=== PATIENT | male | born 1985 | race Two or more races ===

== ENCOUNTER 2017-05-09 04:07 | Emergency (ER) | payer MEDICAID ==
[2017-05-09] MEDS ORDERED: NS 1,000 ML IV ONE (04:24)
[2017-05-09] MEDS ORDERED: LORazepam 2 MG/ML INJ IVP ONE (04:24)
[2017-05-09] MEDS ORDERED: ONDANSETRON 4 MG/2 ML VIAL IVP ONE (04:25)
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
[2017-05-09 05:10] VITALS: BP 115/81; PULSE 74; RESP 12; O2SAT 97
[2017-05-09 05:38] VITALS: TEMP 98.4
== END 2017-05-09 05:37 | disposition home or self-care (01) ==
DX: F11.23 Opioid dependence with withdrawal (principal); I10 Essential (primary) hypertension
CPT/HCPCS: 96374; J2060; J2405

== ENCOUNTER 2017-05-12 01:28 | Emergency (ER) | payer MEDICAID ==
[2017-05-12] MEDS ORDERED: LORazepam 1 MG TAB ONE (01:57)
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
[2017-05-12] MEDS ORDERED: LORazepam 1 MG TAB PO ONE (02:09)
[2017-05-12] MEDS ORDERED: LORAZEPAM 1 MG PREPACK#4 BTL TAKEHOME ONE ×2 (02:19→05:09)
[2017-05-12 05:14] VITALS: BP 131/74; PULSE 70; RESP 16; TEMP 98.1; O2SAT 96
== END 2017-05-12 05:14 | disposition home or self-care (01) ==
LOC: EDUNIT#
DX: G47.00 Insomnia, unspecified (principal)

== ENCOUNTER 2017-07-17 10:04 | Inpatient (IN) | payer MEDICAID ==
[2017-07-17] MEDS ORDERED: fentaNYL 100 MCG/2 ML INJ IVP ONE ×2 (10:16→13:39)
[2017-07-17] MEDS ORDERED: NS 1,000 ML IV ONE ×2 (10:16→10:44)
[2017-07-17] MEDS ORDERED: ONDANSETRON 4 MG/2 ML VIAL IVP ONE (10:16)
[2017-07-17 10:48] LABS: % IMMATURE GRANULYOCYTES 0.5 % (0.0-1.1); ABSOLUTE IMMATURE GRANULOCYTES 0.12 10^3/uL (0.00-0.10); ADD DIFF? NO; ADD MORPH? NO; ADD SCAN? NO; ATYPICAL LYMPHOCYTE FLAG 0 (0-99); FRAGMENT RBC FLAG 0 (0-99); HEMATOCRIT 46.7 % (40.0-51.0); HEMOGLOBIN 16.2 g/dL (13.7-17.5); LEFT SHIFT FLG 10 (0-99); LIPEMIA HEMOLYSIS FLAG 90 (0-99); MEAN CELL HEMOGLOBIN CONCENTR. 34.7 g/dL (32.4-36.7); MEAN CELL VOLUME 89.5 fL (81.5-99.8); MEAN PLATELET VOLUME 9.1 fL (8.7-11.7); PLATELET CLUMPS FLAG 0 (0-99); PLATELET COUNT 369 10^3/uL (150-400); RED BLOOD CELL COUNT 5.22 10^6/uL (4.40-6.38); RED CELL DISTRIBUTION WIDTH 14.3 % (11.5-15.2)
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
[2017-07-17 10:54] LABS: ANION GAP 14 mEq/L (8-16); CALCIUM 10.1 mg/dL (8.5-10.4); CARBON DIOXIDE 19 mEq/l (22-31); CHLORIDE 105 mEq/L (97-110); CREATININE 0.9 mg/dL (0.7-1.3); GLOMERULAR FILTRATION RATE > 60; GLUCOSE 88 mg/dL (70-100); POTASSIUM 3.9 mEq/L (3.5-5.2); SODIUM 138 mEq/L (134-144)
[2017-07-17] MEDS ORDERED: IOPAMIDOL (ISOVUE-300) 100 ML BTL ONE (11:01)
[2017-07-17 12:22] LABS: COLOR YELLOW; LEUKOCYTE ESTERASE,URINE NEGATIVE (NEGATIVE); NITRITE,URINE NEGATIVE (NEGATIVE)
[2017-07-17 14:49] LABS: HEMATOCRIT 47.9 % (40.0-51.0)
[2017-07-17] MEDS ORDERED: ONDANSETRON 4 MG/2 ML VIAL IVP PRN (15:01)
[2017-07-17] MEDS ORDERED: ONDANSETRON DISINTEGRATING 4 MG TAB PO PRN (15:01)
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
[2017-07-17] MEDS: VANCOMYCIN 1.5 GM in D5W 250 ML IV SCH (18:23)
[2017-07-17] MEDS: ACETAMINOPHEN 500 MG TAB PO SCH (20:26)
[2017-07-17] MEDS ORDERED: KETOROLAC 30 MG/1 ML SDV IVP ONE (20:43)
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
[2017-07-17] MEDS ORDERED: ACETAMINOPHEN 325 MG TAB PO SCH (22:00)
[2017-07-18 04:52] LABS: % IMMATURE GRANULYOCYTES 0.5 % (0.0-1.1); ABSOLUTE IMMATURE GRANULOCYTES 0.07 10^3/uL (0.00-0.10); ADD DIFF? NO; ADD MORPH? NO; ADD SCAN? NO; ATYPICAL LYMPHOCYTE FLAG 10 (0-99); FRAGMENT RBC FLAG 0 (0-99); HEMATOCRIT 44.3 % (40.0-51.0); LEFT SHIFT FLG 0 (0-99); LIPEMIA HEMOLYSIS FLAG 90 (0-99); MEAN CELL HEMOGLOBIN 31.1 pg (27.9-34.1); MEAN CELL HEMOGLOBIN CONCENTR. 33.9 g/dL (32.4-36.7); MEAN CELL VOLUME 91.7 fL (81.5-99.8); MEAN PLATELET VOLUME 9.3 fL (8.7-11.7); PLATELET CLUMPS FLAG 0 (0-99); PLATELET COUNT 303 10^3/uL (150-400); RED BLOOD CELL COUNT 4.83 10^6/uL (4.40-6.38); RED CELL DISTRIBUTION WIDTH 14.2 % (11.5-15.2)
[2017-07-18] MEDS: VANCOMYCIN 1.5 GM in D5W 250 ML IV SCH ×2 (05:02→17:22)
[2017-07-18] MEDS: ACETAMINOPHEN 500 MG TAB PO SCH ×3 (05:06→21:14)
[2017-07-18] MEDS: HYDROCODONE/APAP 5/325 TAB PO PRN ×4 (05:06→23:54)
[2017-07-18 05:34] LABS: ALANINE AMINOTRANSFERASE 24 IU/L (21-72); ALBUMIN 3.4 g/dL (3.5-5.0); ALKALINE PHOSPHATASE 71 IU/L (38-126); ANION GAP 11 mEq/L (8-16); ASPARTATE AMINOTRANSFERASE 18 IU/L (17-59); BILIRUBIN,TOTAL 0.8 mg/dL (0.1-1.4); BILIRUBIN-CONJUGATED 0.2 mg/dL (0.0-0.5); BILIRUBIN-UNCONJUGATED 0.6 mg/dL (0.0-1.1); C-REACTIVE PROTEIN 64.9 mg/L (<10.0); CALCIUM 9.2 mg/dL (8.5-10.4); CARBON DIOXIDE 21 mEq/l (22-31); CHLORIDE 106 mEq/L (97-110); CREATININE 0.9 mg/dL (0.7-1.3); GLOMERULAR FILTRATION RATE > 60; GLUCOSE 85 mg/dL (70-100); SODIUM 138 mEq/L (134-144); TOTAL PROTEIN 6.4 g/dL (6.3-8.2)
[2017-07-18] MEDS: KETOROLAC 15 MG/1 ML SDV IVP SCH ×4 (05:48→23:55)
[2017-07-18 05:56] LABS: CORTISOL-AM 12.5 ug/dL (4.5-22.7)
[2017-07-18] MEDS: ENOXAPARIN 40 MG/0.4 ML SYR SC SCH (09:15)
--- NOTE | 2017-07-18 10:33 | PCMIDPN ---
Assessment/Plan: Assessment/Plan: 1. Right buttock cellulitis with inguinal lymphadenopathy: - clinically improved since starting VAncomycin - wbc markedly improved. - blood cx pending -skin care and strategies to reduce skin infections discussed at length with patient - updated patient on available lab results so far. -continue with IV antbx at least 1-2 days more, and then plan to change to oral antibiotics thereafter. -check trough in AM Meds vanco 1.5gm q12- 07/17/17 Subjective: afebrile. feeling much better today. much less pain involving buttock. denies sob, abd pain, diarrhea. Stated he had sweats last night and this AM. Objective: Vital Signs Temp Pulse Resp BP Pulse Ox 36.5 C 56 L 16 95/46 L 94 07/18/17 07:43 07/18/17 07:43 07/18/17 07:43 07/18/17 07:43 07/18/17 07:43 Laboratory Results 07/18/17 04:37 07/18/17 04:37 07/17/17 07/18/17 07/19/17 05:59 05:59 05:59 Intake Total 1850 Output Total 2600 Balance -750 ESR 5 MM/HR (0-15) 07/17/17 Unknown C-Reactive Protein 64.9 mg/L (<10.0) H 07/18/17 04:37 - Physical Exam General Appearance: alert, no apparent distress Respiratory: lungs clear Cardiac/Chest: regular rate, rhythm Extremities: No swelling Abdomen: normal bowel sounds, non-tender, soft, No distended Pelvic Exam: other (lymphadenopathy inguinal) Skin: erythema (right buttock erythema with induraiton. no maxime abscess noted at this time. tender. no vesicles.) - Time Spent With Patient Time Spent with Patient: greater than 35 minutes Time Spent with Patient: Greater than 35 minutes spent on this patients care, greater than 50% of time spent counseling, educating, and coordinating care regarding the above mentioned plan. ICD10 Worksheet Patient Problems: Problems Problem Status Onset Right groin pain Acute
--- NOTE | 2017-07-18 11:24 | HOSPPROG ---
Hospitalist Progress Note Assessment/Plan: * Right buttock cellulitis with inguinal LAD * on IV vanco * improving *Erectile dysfunction * thyroid and cortisol nl * testosterone pending Subjective: right buttock and groin feel better Objective: Vital Signs Temp Pulse Resp BP Pulse Ox 36.5 C 56 L 16 95/46 L 94 07/18/17 07:43 07/18/17 07:43 07/18/17 07:43 07/18/17 07:43 07/18/17 07:43 Laboratory Results 07/18/17 04:37 07/18/17 04:37 07/17/17 07/18/17 07/19/17 05:59 05:59 05:59 Intake Total 1850 Output Total 2600 Balance -750 - Physical Exam Constitutional: no apparent distress, appears nourished, not in pain Eyes: anicteric sclera, EOMI Ears, Nose, Mouth, Throat: moist mucous membranes, hearing normal Genitourinary: other (tender right inguinal lad) Skin: other (mild erythema right buttock) Neurologic: AAOx3 Psychiatric: interacting appropriately, not anxious, not encephalopathic, thought process linear ICD10 Worksheet Patient Problems: Problems Problem Status Onset Right groin pain Acute
[2017-07-19 05:03] LABS: % IMMATURE GRANULYOCYTES 0.3 % (0.0-1.1); ABSOLUTE IMMATURE GRANULOCYTES 0.03 10^3/uL (0.00-0.10); ADD DIFF? NO; ADD MORPH? NO; ADD SCAN? NO; ATYPICAL LYMPHOCYTE FLAG 20 (0-99); FRAGMENT RBC FLAG 0 (0-99); HEMATOCRIT 44.9 % (40.0-51.0); LEFT SHIFT FLG 0 (0-99); LIPEMIA HEMOLYSIS FLAG 80 (0-99); MEAN CELL HEMOGLOBIN 30.5 pg (27.9-34.1); MEAN CELL HEMOGLOBIN CONCENTR. 33.4 g/dL (32.4-36.7); MEAN CELL VOLUME 91.4 fL (81.5-99.8); MEAN PLATELET VOLUME 9.4 fL (8.7-11.7); PLATELET CLUMPS FLAG 10 (0-99); PLATELET COUNT 337 10^3/uL (150-400); RED BLOOD CELL COUNT 4.91 10^6/uL (4.40-6.38); RED CELL DISTRIBUTION WIDTH 14.1 % (11.5-15.2)
[2017-07-19 05:15] LABS: ANION GAP 12 mEq/L (8-16); CALCIUM 9.4 mg/dL (8.5-10.4); CARBON DIOXIDE 22 mEq/l (22-31); CHLORIDE 107 mEq/L (97-110); CREATININE 0.9 mg/dL (0.7-1.3); GLOMERULAR FILTRATION RATE > 60; GLUCOSE 87 mg/dL (70-100); POTASSIUM 4.2 mEq/L (3.5-5.2); SODIUM 141 mEq/L (134-144)
[2017-07-19] MEDS: HYDROCODONE/APAP 5/325 TAB PO PRN ×3 (05:41→17:34)
[2017-07-19] MEDS: VANCOMYCIN 1.5 GM in D5W 250 ML IV SCH ×2 (05:41→17:35)
[2017-07-19] MEDS: KETOROLAC 15 MG/1 ML SDV IVP SCH ×4 (05:42→23:34)
[2017-07-19] MEDS: ACETAMINOPHEN 500 MG TAB PO SCH ×3 (05:44→22:10)
[2017-07-19] MEDS: ENOXAPARIN 40 MG/0.4 ML SYR SC SCH (08:51)
[2017-07-19] MEDS ORDERED: BISACODYL 10 MG SUPP PR PRN (14:49)
[2017-07-19] MEDS ORDERED: POLYETHYLENE GLYCOL 3350 17 GM PKT PO PRN (14:49)
[2017-07-19] MEDS ORDERED: LACTULOSE 20 GM/30 ML UDCUP PO PRN (14:49)
[2017-07-19] MEDS ORDERED: MAGNESIUM HYDROXIDE 30 ML UDCUP PO PRN (14:49)
--- NOTE | 2017-07-19 16:25 | HOSPPROG ---
Hospitalist Progress Note Assessment/Plan: * Right buttock cellulitis with inguinal LAD * on IV vanco * improving * hopefully dc home tomorrow *Erectile dysfunction * thyroid and cortisol nl * testosterone pending Subjective: feeling better Objective: Vital Signs Temp Pulse Resp BP Pulse Ox 36.9 C 67 14 122/93 H 96 07/19/17 15:12 07/19/17 15:12 07/19/17 15:12 07/19/17 15:12 07/19/17 15:12 Laboratory Results 07/19/17 04:30 07/19/17 04:30 07/18/17 07/19/17 07/20/17 05:59 05:59 05:59 Intake Total 1850 2450 Output Total 2600 2 Balance -750 2448 - Physical Exam Constitutional: no apparent distress, appears nourished, not in pain Ears, Nose, Mouth, Throat: moist mucous membranes, hearing normal Cardiovascular: regular rate and rhythym Musculoskeletal: other (improving erythema right buttock, improving LAD) Neurologic: AAOx3 Psychiatric: interacting appropriately, not anxious, not encephalopathic, thought process linear ICD10 Worksheet Patient Problems: Problems Problem Status Onset Right groin pain Acute
--- NOTE | 2017-07-19 17:45 | PCMIDPN ---
Assessment/Plan: # R buttock cellulitis/early small abscesses/associated inguinal LAD - clinically improved; WBC normalized. Blood cx negative, AF --if stable tomorrow, okay to DC tomorrow, do not need to wait for ID to round: doxycycline 100mg PO BID x 10 days --called counseling case managerXiomara at [phone] and left VM that patient is hospitalized Medications Generic Name Dose Route Start Last Admin Trade Name Freq PRN Reason Stop Dose Admin Vancomycin HCl 1.5 gm/ 250 mls @ 166.67 mls/hr 07/17/17 17:30 07/19/17 17:35 Dextrose IV 08/16/17 17:29 250 mls Q12H BLANCHE Protocol micro 07/17 blood cx (2) NGTD 07/19/17 18:07 Subjective: feeling well upset about counseling case manager not believing he is in hospital Objective: Vital Signs Temp Pulse Resp BP Pulse Ox 36.9 C 67 14 122/93 H 96 07/19/17 15:12 07/19/17 15:12 07/19/17 15:12 07/19/17 15:12 07/19/17 15:12 Laboratory Results 07/19/17 04:30 07/19/17 04:30 07/18/17 07/19/17 07/20/17 05:59 05:59 05:59 Intake Total 1850 2450 Output Total 2600 2 Balance -750 2448 ESR 5 MM/HR (0-15) 07/17/17 Unknown C-Reactive Protein 64.9 mg/L (<10.0) H 07/18/17 04:37 - Physical Exam General Appearance: alert Respiratory: lungs clear Neck: supple Cardiac/Chest: regular rate, rhythm, No systolic murmur Extremities: other (R buttock with multiple endurated areas that patient reports less tender) Male Genitalia: inguinal tenderness (right, but improved) Skin: other (extensive tatoos), No rash Neuro/Psych: alert, normal mood/affect, oriented x 3 ICD10 Worksheet Patient Problems: Problems Problem Status Onset Right groin pain Acute
[2017-07-19] MEDS: SENNOSIDES/DOCUSATE SODIUM TAB PO SCH (22:10)
[2017-07-20] MEDS: ACETAMINOPHEN 500 MG TAB PO SCH (05:43)
[2017-07-20] MEDS: KETOROLAC 15 MG/1 ML SDV IVP SCH ×2 (05:43→10:59)
[2017-07-20] MEDS: VANCOMYCIN 1.5 GM in D5W 250 ML IV SCH (05:43)
[2017-07-20 07:30] VITALS: BP 126/70; PULSE 59; RESP 20; TEMP 97.4; O2SAT 96
[2017-07-20] MEDS: SENNOSIDES/DOCUSATE SODIUM TAB PO SCH (09:16)
[2017-07-20] MEDS: ENOXAPARIN 40 MG/0.4 ML SYR SC SCH (09:17)
--- NOTE | 2017-07-20 11:20 | GDS ---
[f rep st] DISCHARGE SUMMARY HISTORY: This is a 32-year-old male, who presented with right inguinal pain as well as pain in his leg. HOSPITAL COURSE: The patient was admitted and apparently had cellulitis in is buttock. He had lymp hadenopathy. He also had hardware in his left femur. He was treated with IV antibiotics for severa l days. His leukocytosis improved. He will be discharged home on oral doxycycline. /[id number]/MODL
== END 2017-07-20 11:56 | disposition home or self-care (01) | DRG 603 ==
LOC: OBSVTOIN 15:01 → F3N 16:12 → F3E 07-19 20:02
PROVIDERS: ADMIT Internal Medicine; ATTEND Internal Medicine
DX: L03.317 Cellulitis of buttock (principal); R59.0 Localized enlarged lymph nodes; N52.9 Male erectile dysfunction, unspecified; D72.829 Elevated white blood cell count, unspecified
CPT/HCPCS: 84402-90; 96374; J1650; J1885; J2405; J3010; J3370; Q9967

== ENCOUNTER 2018-03-14 13:35 | Emergency (ER) | payer MEDICAID ==
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
[2018-03-14 15:18] VITALS: BP 119/80
== END 2018-03-14 15:15 | disposition home or self-care (01) ==
DX: S76.011A Strain of muscle, fascia and tendon of right hip, initial encounter (principal); M70.61 Trochanteric bursitis, right hip; X58.XXXA Exposure to other specified factors, initial encounter; Y99.8 Other external cause status; Y93.39 Activity, other involving climbing, rappelling and jumping off

== ENCOUNTER 2018-03-26 17:04 | Emergency (ER) | payer MEDICAID ==
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
[2018-03-26] MEDS ORDERED: DOXYCYCLINE HYCLATE 100 MG CAP/TAB PO ONE (17:31)
[2018-03-26] MEDS ORDERED: CEPHALEXIN 500 MG CAP PO ONE (17:31)
[2018-03-26 18:20] VITALS: BP 127/76
== END 2018-03-26 18:21 | disposition home or self-care (01) ==
DX: L03.116 Cellulitis of left lower limb (principal)

== ENCOUNTER 2018-04-16 11:47 | Emergency (ER) | payer MEDICAID ==
[2018-04-16] MEDS ORDERED: OXYCODONE/APAP 5/325 TAB PO ONE (12:18)
[2018-04-16] MEDS ORDERED: AMOXICILLIN/CLAVULANATE POT 875/125 MG TAB PO ONE (12:18)
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
[2018-04-16 14:26] VITALS: BP 150/90
== END 2018-04-16 14:57 | disposition home or self-care (01) ==
PROC: 0HQ1XZZ Repair Face Skin, External Approach (ICD-10-PCS; principal; 2018-04-16)
DX: S01.81XA Laceration without foreign body of other part of head, initial encounter (principal); V18.9XXA Unspecified pedal cyclist injured in noncollision transport accident in traffic accident, initial encounter

== ENCOUNTER 2018-05-02 18:34 | Emergency (ER) | payer MEDICAID ==
[2018-05-02] MEDS ORDERED: IPRATROPIUM/ALBUTEROL 3 ML DEYVIAL IH ONE (18:58)
[2018-05-02] MEDS ORDERED: ALBUTEROL 3 ML DEYVIAL IH ONE (19:12)
[2018-05-02] MEDS ORDERED: predniSONE 20 MG TAB PO ONE (19:14)
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
[2018-05-02] MEDS ORDERED: predniSONE 20 MG TAB ONE (19:22)
[2018-05-02] MEDS: IPRATROPIUM/ALBUTEROL 3 ML DEYVIAL IH ONE ×2 (19:25→19:26)
[2018-05-02] MEDS ORDERED: ALBUTEROL INH PREPACK MDI TAKEHOME ONE (20:48)
[2018-05-02 21:00] VITALS: BP 126/80
[2018-05-03 23:40] LABS: B.PARAPERTUSSIS PCR Negative; B.PERTUSSIS PCR Negative
== END 2018-05-02 21:00 | disposition home or self-care (01) ==
DX: J45.909 Unspecified asthma, uncomplicated (principal)
CPT/HCPCS: 87798-90; J7512; J7613